=== PATIENT | male | born 1960 | race Caucasian/White ===

== ENCOUNTER 2017-09-20 07:03 | Day surgery (SDC) | payer OTHER ==
[~2017-09-20] VITALS: Ht 182.9 cm; Wt 78.9 kg
[2017-09-20 07:41] LABS: BASOPHILS # (AUTO) 0.1 K/uL (0.00-0.22); BASOPHILS % (AUTO) 1.4 % (0.0-2.0); EOSINOPHILS # (AUTO) 0.3 K/uL (0-0.4); EOSINOPHILS % (AUTO) 3.8 % (0.0-4.0); HEMATOCRIT 51.3 % (36-52); HEMOGLOBIN 17.1 g/dL (12.0-18.0); LYMPHOCYTES # (AUTO) 2.4 K/uL (2.0-11.5); LYMPHOCYTES % (AUTO) 34.2 % (20.5-51.1); MEAN CORPUSCULAR HEMOGLOBIN 34 pg (27-31); MEAN CORPUSCULAR HGB CONC 33 g/dL (33-37); MEAN CORPUSCULAR VOLUME 101 fL (80-94); MONOCYTES # (AUTO) 0.4 K/uL (0.8-1.0); MONOCYTES % (AUTO) 5.4 % (1.7-9.3); NEUTROPHILS # (AUTO) 3.7 K/uL (1.8-7.7); NEUTROPHILS % (AUTO) 55.2 % (42.2-75.2); PLATELET COUNT (AUTO) 181 K/uL (140-450); RED BLOOD CELL COUNT(AUTO) 5.08 MIL/uL (4.20-6.10); RED CELL DISTRIBUTION WIDTH 12.5 % (11.6-13.7); WHITE BLOOD COUNT (AUTO) 6.9 K/uL (4.8-10.8)
[2017-09-20 08:08] LABS: ALBUMIN 3.8 g/dL (3.4-5.0); BILIRUBIN,DIRECT 0.2 mg/dL (0.0-0.3); TOTAL BILIRUBIN 1.1 mg/dL (0.0-1.0)
[2017-09-20] MEDS ORDERED: LIDOCAINE 2% 1000 MG/50 ML VIAL INJ ONE (08:17)
[2017-09-20] MEDS: MORPHINE SULFATE 2 MG/ML SYR IVP PRN ×5 (09:08→22:29)
[2017-09-20] MEDS ORDERED: MORPHINE SULFATE 2 MG/ML SYR ONE (09:15)
[2017-09-20] MEDS ORDERED: ONDANSETRON 4 MG/2 ML VIAL IVP PRN ×2 (11:15→12:20)
[2017-09-20] MEDS ORDERED: ONDANSETRON 4 MG/2 ML VIAL ONE (12:13)
[2017-09-20] MEDS: POTASSIUM CHL 20 MEQ/ 1/2 NS 1,000 ML IV SCH ×3 (12:15→18:55)
[2017-09-20] MEDS ORDERED: ACETAMINOPHEN EXTRA STRENGTH 500 MG TAB PO PRN (12:15)
[2017-09-20 14:36] VITALS: BP 117/73
--- NOTE | 2017-09-20 14:36 | NUR ---
PATIENT ARRIVED ON MST UNIT. ABLE TO AMBULATE FROM WHEELCHAIR TO BED WITH STEADY GAIT. PATIENT IN STABLE CONDITION. ORIENTED PATIENT TO ROOM AND CALL LIGHT. AAOX4, CALM, COOPERATIVE, SKIN COLOR APPROPRIATE TO ETHNICITY, WARM TO TOUCH. SKIN IS INTACT THROUGHOUT BODY. IV SITE IS INTACT, PATENT, AND INFUSING IVF PER ORDERS. LUNGS CTA ON ALL LOBES. ABDOMEN SOFT, NON-DISTENDED. COMPLAINTS OF CHEST PAIN. WILL NOTIFY MD AND MEDICATE PER ORDERS. SAFETY MEASURES IN PLACE, CALL LIGHT WITHIN REACH, SEIZURE PRECAUTIONS IN PLACE, FALL PREVENTIONS IN PLACE. WILL CONTINUE TO MONITOR.
--- NOTE | 2017-09-20 16:20 | NUR ---
PATIENT SLEEPING IN BED, AROUSABLE BY VOICE. NO DISTRESS NOTED. PAIN WITHIN TOLERABLE AT THIS TIME. SAFETY MEASURES IN PLACE, CALL LIGHT WITHIN REACH. WILL CONTINUE TO MONITOR.
[2017-09-20 16:21] VITALS: BP 117/69
[2017-09-20] MEDS ORDERED: DEXTROSE 50% 50 ML SYR IVP PRN (18:05)
[2017-09-20] MEDS ORDERED: INSULIN LISPRO SLIDING SCALE 100 UNITS/ML VIAL SUBQ PRN (18:05)
--- NOTE | 2017-09-20 18:30 | NUR ---
PATIENT COMPLAINS OF CHEST PAIN. DR. MAYES RETURNED CALL WITH MEDICATION ORDERS. WILL ADMINISTER PAIN MEDICATIONS PER ORDERS. WILL CONTINUE TO MONITOR.
--- NOTE | 2017-09-20 19:17 | NUR ---
GAVE REPORT TO ADVERTISING STRATEGIST NURSE FOR CONTINUITY OF CARE. PATIENT IN STABLE CONDITION.
--- NOTE | 2017-09-20 19:20 | NUR ---
RECEIVED FROM AM RN IN BED AWAKE AND ASKING FOR MORE PAIN RELIEVER. INFORMED THAT HE JUST HAD HIS PAIN RELIEVER GIVEN BY AM RN. "OK" A/O X 4. CLEAR SPEECH. TELEMETRY MONITORING. VS WNL. CALL LIGHT WITH IN REACH. BILATERAL LEG SEQUENTIALS IN PLACE. NO REPORTED VOMITING AND NO COMPLAINTS OF VOMITING MADE.
[2017-09-20 20:21] VITALS: BP 129/69
--- NOTE | 2017-09-20 21:49 | NUR ---
PT. SLEEPING AT THIS TIME. INCISION SITE TO ABDOMEN S/P LIVER BIOPSY NO BLEEDING NOTED. IVF SITE TO LEFT HAND INTACT AND NO INFILTRATION.
[2017-09-20 22:29] VITALS: BP 151/87
--- NOTE | 2017-09-20 22:35 | NUR ---
PT. WOKE UP AND REQUESTED FOR PAIN RELIEVER . STATED THAT HIS ABDOMEN WHERE THE INCISION SITE IS PAINFUL. MEDICATED REQUESTED. A/O X 4. TELEMETRY MONITORING. PROVIDED WITH EXTRA PILLOW TO SUPPORT ABDOMEN REQUESTED BY PT. NO FURTHER COMPLAINTS DONE.
--- NOTE | 2017-09-20 23:02 | NUR ---
PT. SLEEPING AT THIS TIME. COVERED WITH WARM BLANKET. CALL LIGHT WITH IN REACH. ABLE TO USE CALL LIGHT FOR HELP .
[2017-09-21 00:21] VITALS: BP 128/69
[2017-09-21] MEDS: BLOOD GLUCOSE MONITORING 1 DEV DEV FS SCH ×2 (00:29→06:14)
[2017-09-21] MEDS: POTASSIUM CHL 20 MEQ/ 1/2 NS 1,000 ML IV SCH (01:44)
[2017-09-21] MEDS: MORPHINE SULFATE 2 MG/ML SYR IVP PRN (01:44)
[2017-09-21 01:50] VITALS: BP 140/78
--- NOTE | 2017-09-21 02:16 | NUR ---
PT. MEDICATED WITH MORPHINE 2 MG. REQUESTED. TOLERATED WELL. WENT BACK TO SLEEP. C/O ABDOMINAL PAIN RT S/P LIVER BIOPSY. CALL LIGHT WITH N REACH.
--- NOTE | 2017-09-21 04:13 | NUR ---
SLEEPING WELL THIS SHIFT. NO RESTLESSNESS NOTED. TELEMETRY MONITORING. MEDICATED WITH PRN PAIN RELIEVER .
[2017-09-21 04:20] VITALS: BP 128/68
--- NOTE | 2017-09-21 05:02 | NUR ---
PT. WOKE UP AND REALIZED HE HAD PULLED HIS IV TUBING ACCIDENTALLY. STATED HE HAD A DREAM . NEW IVF SITE INSERTED TO RIGHT FOREARM#22 . OLD IVF SITE DISCONTINUED BY PT. WITH TIP INTACT. COVERED WITH BAND AID. VERBALIZING WELL. REFUSED PAIN RELIEVER OFFERRED. STATED HE IS NOT IN PAIN AT THIS TIME.
--- NOTE | 2017-09-21 06:00 | NUR ---
MD WHELAN CALLED AND INQUIRED ABOUT PT. RELAYED TO PT. THAT WILL BE IN HERE TO SEE HIM THIS A.M. PT. HAPPY AND WANTS TO GO HOME TODAY.
--- NOTE | 2017-09-21 06:42 | NUR ---
BLOOD SUGAR THIS AM 102. NO INSULIN COVERAGE. PT. VERBALIZING WELL. GOOD AFFECT. WENT RESTROOM BY HIMSELF WITH STANDBY ASSIST NO NOTED SEIZURE EPISODES THIS SHIFT. ON TELEMETRY MONITORING.
[2017-09-21 07:21] LABS: HEPATITIS A ANTIBODY IGM Negative (Negative); HEPATITIS B CORE AB TOTAL Negative (Negative); HEPATITIS B SURFACE ANTIBODY Non Reactive (.); HEPATITIS B SURFACE ANTIGEN Negative (Negative)
[2017-09-21 07:40] LABS: BASOPHILS # (AUTO) 0.2 K/uL (0.00-0.22); BASOPHILS % (AUTO) 1.8 % (0.0-2.0); EOSINOPHILS # (AUTO) 0.1 K/uL (0-0.4); HEMATOCRIT 35.9 % (36-52); HEMOGLOBIN 12.6 g/dL (12.0-18.0); LYMPHOCYTES # (AUTO) 1.2 K/uL (2.0-11.5); LYMPHOCYTES % (AUTO) 12.2 % (20.5-51.1); MEAN CORPUSCULAR HEMOGLOBIN 35 pg (27-31); MEAN CORPUSCULAR HGB CONC 35 g/dL (33-37); MEAN CORPUSCULAR VOLUME 100 fL (80-94); MONOCYTES % (AUTO) 9.8 % (1.7-9.3); NEUTROPHILS # (AUTO) 7.7 K/uL (1.8-7.7); NEUTROPHILS % (AUTO) 75.2 % (42.2-75.2); PLATELET COUNT (AUTO) 150 K/uL (140-450); RED BLOOD CELL COUNT(AUTO) 3.59 MIL/uL (4.20-6.10); RED CELL DISTRIBUTION WIDTH 12.5 % (11.6-13.7); WHITE BLOOD COUNT (AUTO) 10.2 K/uL (4.8-10.8)
[2017-09-21 08:00] VITALS: BP 144/85
--- NOTE | 2017-09-21 08:00 | NUR ---
RECEIVED REPORT FROM [facility] RG, PATIENT ALERT AWAKE ORIENTED X4 NOT IN ANY DISTRESS NOTED. WITH IVF ON GOING AND INFUSING WELL. PATIENT VERBALIZED THAT HE WANTS TO GO HOME. WAITING FOR DR. MAYES. WILL CONTINUE TO MONITOR.
--- NOTE | 2017-09-21 08:30 | NUR ---
SEEN BY DR. MAYES AND ORDER TO D/C TO HOME AND HE WILL CALL PATIENT FOR FOLLOW UP IN HIS OFFICE.
--- NOTE | 2017-09-21 09:25 | NUR ---
PATIENT HAS BEEN SCREENED AND CATEGORIZED MODERATE NUTRITION RISK. PATIENT WILL BE SEEN WITHIN 3-5 DAYS OF ADMISSION. 09/22/17-09/24/[address]
--- NOTE | 2017-09-21 10:00 | NUR ---
D/C TO HOME WITH D/C INSTRUCTION GIVEN AND VERBALIZED UNDERSTANDING. DRESSING ON THE FOREHEAD CHANGED, REFUSED TO TAKE PICTURE. IN STABLE CONDITION.
== END 2017-09-21 10:00 | disposition home or self-care (01) ==
LOC: MDS 07:03 → MMU 07:16 → MTU 14:30 → MDS 09-21 10:00
PROVIDERS: ATTEND Internal Medicine Gastroenterology
DX: R74.0 Nonspecific elevation of levels of transaminase and lactic acid dehydrogenase [LDH] (principal); F17.200 Nicotine dependence, unspecified, uncomplicated; Z98.890 Other specified postprocedural states
CPT/HCPCS: 36415; 47000; 70450; 71010; 76705; 76942; 80076; 82948; 85025; 85610; 85730; 86704; 86706; 86708; 86709; 86803; 87081; 87340; J2001; J2270; J2405; J3480; J7030; J7060; Q0092